=== PATIENT | male | born 1975 | race Caucasian/White ===

== ENCOUNTER 2021-05-14 08:38 | Outpatient (RCR) | payer BC, SELFPAY | END 2021-06-08 23:59 | disposition home or self-care (01) | LOC: SPT 08:38 | PROVIDERS: PCP Urology; Visit Provider Orthopaedic Surgery | DX: Z47.1 Aftercare following joint replacement surgery (principal); Z96.651 Presence of right artificial knee joint | CPT/HCPCS: 97110; 97161 ==

== ENCOUNTER 2021-06-09 06:00 | Outpatient (RCR) | payer BC, SELFPAY | END 2021-07-09 23:59 | disposition home or self-care (01) | LOC: SPT 06:00 | PROVIDERS: PCP Urology; Visit Provider Orthopaedic Surgery | DX: Z47.1 Aftercare following joint replacement surgery (principal); Z96.651 Presence of right artificial knee joint | CPT/HCPCS: 97110 ==

== ENCOUNTER 2021-07-10 06:00 | Outpatient (RCR) | payer BC, SELFPAY | END 2021-08-09 23:59 | disposition home or self-care (01) | LOC: SPT 06:00 | PROVIDERS: PCP Urology; Visit Provider Orthopaedic Surgery | DX: Z47.1 Aftercare following joint replacement surgery (principal); Z96.651 Presence of right artificial knee joint | CPT/HCPCS: 97110 ==

== ENCOUNTER → 2021-11-05 08:36 | Outpatient (BNVA) | payer SELFPAY | PROVIDERS: PCP Urology; Visit Provider Family Medicine Adult Medicine | DX: I10 Essential (primary) hypertension (principal); R73.09 Other abnormal glucose; E66.9 Obesity, unspecified; G47.30 Sleep apnea, unspecified; Z13.6 Encounter for screening for cardiovascular disorders | CPT/HCPCS: 80053; 83036; 84443; 85025 ==

== ENCOUNTER 2024-02-13 06:00 | Outpatient (CLI) | payer BC, SELFPAY | END 2024-02-13 06:01 | disposition home or self-care (01) | LOC: RAD 03-19 06:06 | PROVIDERS: PCP Family Medicine Adult Medicine; Visit Provider Family Medicine Adult Medicine | DX: R10.32 Left lower quadrant pain (principal); I10 Essential (primary) hypertension; R42 Dizziness and giddiness; R53.83 Other fatigue; N20.0 Calculus of kidney | CPT/HCPCS: 80053; 84403; 84443; 85025; G0103 ==